=== PATIENT | male | born 1995 | race Caucasian/White ===

== ENCOUNTER 2017-05-13 23:05 | Emergency (ER) | payer BC ==
[~2017-05-13] VITALS: Ht 182.9 cm; Wt 72.7 kg
[2017-05-13 23:10] VITALS: BP 140/82; TEMP 99.5
[2017-05-14 01:29] VITALS: PULSE 80
== END 2017-05-14 01:32 | disposition home or self-care (01) ==
LOC: COL.ER 23:05
DX: H10.89 Other conjunctivitis (principal)